=== PATIENT | female | born 1970 | race Two or more races ===

== ENCOUNTER 2022-07-29 10:29 | Emergency (ER) | payer SELFPAY ==
[~2022-07-29] VITALS: Ht 167.6 cm; Wt 95.3 kg
[2022-07-29] MEDS ORDERED: HYDROCODONE/APAP 10-325 MG TABLET PO ONE (11:30)
--- NOTE | 2022-07-29 11:39 | NUR ---
Pt seen by Safety measures in place. Will continue to monitor.
--- NOTE | 2022-07-29 11:40 | NUR ---
Pt was seen for same issues yesterday. Pt was discharged in stable condition. Safety measures in place. Will continue to monitor.
[2022-07-29] MEDS ORDERED: HYDROCODONE/APAP 10-325 MG TABLET ONE (11:42)
--- NOTE | 2022-07-29 12:48 | NUR ---
Pt complained of CP. Pt was ordered lab work, EKG, and Chest X-Ray. However, Pt declined all interventions. Safety measures in place. Will continue to monitor.
--- NOTE | 2022-07-29 12:53 | NUR ---
Pt refused all further treatments/tests, signed out AMA.
== END 2022-07-29 12:58 | disposition left against medical advice (07) ==
LOC: ER 10:29
DX: S32.029A Unspecified fracture of second lumbar vertebra, initial encounter for closed fracture (principal); S32.019A Unspecified fracture of first lumbar vertebra, initial encounter for closed fracture; W01.0XXA Fall on same level from slipping, tripping and stumbling without subsequent striking against object, initial encounter; Y92.89 Other specified places as the place of occurrence of the external cause; M50.322 Other cervical disc degeneration at C5-C6 level; M99.51 Intervertebral disc stenosis of neural canal of cervical region; S09.90XA Unspecified injury of head, initial encounter; Z53.29 Procedure and treatment not carried out because of patient's decision for other reasons; R07.9 Chest pain, unspecified
CPT/HCPCS: 70450; 72125; 72131; 93005; A4663